=== PATIENT | female | born 1990 | race Caucasian/White ===

== ENCOUNTER → 2020-11-25 | Day surgery (SDC) | payer BC ==
[~2020-11-25] MED LIST: Flumazenil 0.1 MG/ML 5 ML MDV ONE; HYDROmorphone 1 MG/ML Syringe ONE; Ketamine 200 MG/20 ML MDV ONE; Metoclopramide 10 MG/2 ML SDV ONE; Midazolam 1 MG/ML 2 ML SDV ONE; Ondansetron 4 MG/2 ML SDV ONE
[2020-11-25] MEDS: Lactated Ringers 1,000 ML IV SCH (11:21)
--- NOTE | 2020-11-25 16:17 | OR ---
DATE OF OPERATION: 11/25/2020 PREOPERATIVE DIAGNOSIS: LARGE SYMPTOMATIC 10 CM LIPOMA, LEFT POSTERIOR THIGH. POSTOPERATIVE DIAGNOSIS: LARGE SYMPTOMATIC 8 CM LIPOMA, LEFT POSTERIOR THIGH. SURGEON: Jesus Paulino MD PROCEDURE: EXCISION OF 8 CM LIPOMA, LEFT POSTERIOR THIGH. ANESTHESIA: Local plus MAC. SPECIMEN: Lipoma. INDICATIONS: This 30-year-old female has a symptomatic left thigh lipoma by CT scan, this is consistent with a lipoma but not in a true balled up enucleated fashion. DESCRIPTION OF PROCEDURE: I had attempted to do this in the [facility] thinking this excision would be adequate under local anesthesia. However, after 2 syringes full of lidocaine with epinephrine, the patient still was markedly symptomatic. It is almost she had no reaction at all to the local anesthesia. This was too much in the way of crying and discomfort for the patient. I had Anesthesia available and decided to move her to the operating room to add monitored anesthesia care for the excision. In the operating room, the wound was re-prepped and draped in a sterile manner. After adequate relaxation and sedation, I was able to then core out the fatty area of lobulated lipoma. This was not a typical one that had a sac that was easy to enucleate. It mostly came out kind of in fragments of large lobulated fat areas. There was no surgical margin other than what I took out, but the entire cavity was about 8 cm in diameter instead of palpable 10. Hemostasis was controlled with cautery. The wound was closed using 2-0 Vicryl for the subcutaneous fat area and 4-0 Vicryl was used for the skin. BPB/IRVINGL /[id number]
== END ==
LOC: CC.SDS 10:58
PROVIDERS: ATTEND Surgery
DX: D17.24 Benign lipomatous neoplasm of skin and subcutaneous tissue of left leg (principal); Z98.890 Other specified postprocedural states; Z79.899 Other long term (current) drug therapy; Z88.8 Allergy status to other drugs, medicaments and biological substances
CPT/HCPCS: 00300; J1170; J2250; J2405; J2765; J3490; J7120

== ENCOUNTER 2023-09-03 10:31 | Emergency (ER) | payer OTHER ==
[2023-09-03] MEDS ORDERED: Naloxone 2 MG/2 ML Syringe IVPUSH PRN (10:46)
[2023-09-03] MEDS: HYDROmorphone 0.5 MG/0.5 ML Syringe IVPUSH ONE (11:03)
[2023-09-03 11:11] LABS: BASOPHILS ABSOLUTE AUTO 0.03 10^3/uL (0.00-0.50); BASOPHILS PERCENT AUTO 0.3 % (0-1); EOSINOPHILS ABSOLUTE AUTO 0.04 10^3/uL (0.00-1.50); EOSINOPHILS PERCENT AUTO 0.5 % (0-6); HEMATOCRIT 35.1 % (37.0-47.0); HEMOGLOBIN 11.6 g/dL (12.0-16.0); IMMATURE GRAN ABSOLUTE AUTO 0.01 10^3/uL (0.00-0.49); IMMATURE GRAN PERCENT AUTO 0.1 % (0.0-4.9); LYMPHOCYTES ABSOLUTE AUTO 2.01 10^3/uL (0.60-5.00); LYMPHOCYTES PERCENT AUTO 23.4 % (24-44); MEAN CORPUSCULAR HEMOGLOBIN 31.8 pg (27.0-32.0); MEAN CORPUSCULAR VOLUME 96.2 fL (83.0-97.0); MONOCYTES ABSOLUTE AUTO 0.42 10^3/uL (0.00-1.50); MONOCYTES PERCENT AUTO 4.9 % (0-10); NEUTROPHILS ABSOLUTE AUTO 6.09 x10^3/uL (1.80-8.00); NEUTROPHILS PERCENT AUTO 70.8 % (41-71); PLATELET COUNT,PLT 217 10^3/uL (150-400); RED BLOOD CELL COUNT 3.65 x10^6/uL (4.00-5.50); WHITE BLOOD CELL COUNT,WBC 8.6 10^3/uL (4.0-11.0)
[2023-09-03 11:34] LABS: ALANINE AMINOTRANSFERASE,ALT 25 U/L (12-78); ALBUMIN 3.5 g/dL (3.4-5.0); ALKALINE PHOSPHATASE 51 U/L (46-116); ASPARTATE AMNIOTRANSFERASE,AST 15 U/L (15-37); BILIRUBIN TOTAL 0.2 mg/dL (0.0-1.0); BLOOD UREA NITROGEN,BUN 23 mg/dL (7-18); CALCIUM 7.9 mg/dL (8.4-10.1); CARBON DIOXIDE,CO2 27 mmol/L (21-32); CHLORIDE,CL 107 mEq/L (98-106); CREATININE 0.8 mg/dL (0.6-1.0); GLUCOSE RANDOM 88 mg/dL (75-99); POTASSIUM,K 4.2 mEq/L (3.5-5.0); PROTEIN TOTAL,TP 6.8 g/dL (6.4-8.2); SODIUM,NA 142 mEq/L (136-145)
[2023-09-03 11:35] LABS: C-REACTIVE PROTEIN < 0.50 mg/dL (<=0.50); ESTIMATED GFR 98 mL/min (>=60)
[2023-09-03 11:45] LABS: APPEARANCE,URINE CLOUDY (CLEAR); BILIRUBIN,URINE NEGATIVE (NEGATIVE); COLOR,URINE ORANGE (YELLOW); GLUCOSE,URINE 100 mg/dL (NEGATIVE); KETONES,URINE NEGATIVE (NEGATIVE); LEUKOCYTE ESTERASE,URINE LARGE (NEGATIVE); NITRITE,URINE POSITIVE (NEGATIVE); OCCULT BLOOD,URINE SMALL (NEGATIVE); PROTEIN,URINE 100 mg/dL (NEGATIVE)
[2023-09-03 11:55] LABS: BACTERIA,URINE MANY /HPF (NOT SEEN); EPITHELIAL CELLS,URINE OCCASIONAL /HPF (NOT SEEN); RBC,URINE 0-5 /HPF (0-5); WBC,URINE 50-75 /HPF (0-5)
== END 2023-09-03 12:03 | disposition home or self-care (01) ==
LOC: CC.ED 10:31
DX: K59.00 Constipation, unspecified (principal); N39.0 Urinary tract infection, site not specified; Z88.6 Allergy status to analgesic agent; Z79.899 Other long term (current) drug therapy
CPT/HCPCS: 36415; 74019; 80053; 81001; 85025; 86140; 87086; 87088; 87186; 96374; 99284; 99284-25; J1170

== ENCOUNTER 2023-09-05 17:02 | Emergency (ER) | payer OTHER ==
[2023-09-05] MEDS: Bisacodyl 10 MG Supp RECTAL ONE (18:28)
== END 2023-09-05 21:50 | disposition home or self-care (01) ==
LOC: CC.ED 17:02
DX: K59.00 Constipation, unspecified (principal); Z79.899 Other long term (current) drug therapy
CPT/HCPCS: 74019; 99283; A9270-GY

== ENCOUNTER 2023-09-07 11:32 | Day surgery (SDC) | payer OTHER ==
[2023-09-07] MEDS: Lactated Ringers 1,000 ML IV SCH (12:06)
[2023-09-07] MEDS ORDERED: Ketamine 200 MG/20 ML MDV ONE (12:23)
[2023-09-07] MEDS ORDERED: Propofol 200 MG/20 ML SDV ONE (12:23)
[2023-09-07] MEDS ORDERED: Lidocaine 2% 20 ML MDV ONE (12:23)
== END 2023-09-07 13:45 | disposition home or self-care (01) ==
LOC: CC.SDS 11:32
PROVIDERS: ATTEND Family Medicine
DX: K21.00 Gastro-esophageal reflux disease with esophagitis, without bleeding (principal); K29.80 Duodenitis without bleeding; K59.00 Constipation, unspecified; R63.4 Abnormal weight loss; Z68.26 Body mass index [BMI] 26.0-26.9, adult; Z79.899 Other long term (current) drug therapy
CPT/HCPCS: 00731; 87081; J2704; J3490; J7120

== ENCOUNTER 2023-12-20 17:17 | Emergency (ER) | payer OTHER ==
[2023-12-20] MEDS: Orphenadrine 60 MG/2 ML Inj IM ONE (18:18)
[2023-12-20] MEDS: Take Home: Cyclobenzaprine 10 MG Tab, 4 Tab Pack PO ONE (18:22)
== END 2023-12-20 18:50 | disposition home or self-care (01) ==
LOC: CC.ED 17:17
DX: S70.01XA Contusion of right hip, initial encounter (principal); F17.210 Nicotine dependence, cigarettes, uncomplicated; Z79.899 Other long term (current) drug therapy; Z88.8 Allergy status to other drugs, medicaments and biological substances; W19.XXXA Unspecified fall, initial encounter
CPT/HCPCS: 96372; 99283; A9270-GY; J2360

== ENCOUNTER 2024-11-02 07:41 | Emergency (ER) | payer MEDICAID | END 2024-11-02 09:17 | disposition home or self-care (01) | LOC: CC.ED 07:41 | DX: S05.02XA Injury of conjunctiva and corneal abrasion without foreign body, left eye, initial encounter (principal); F17.210 Nicotine dependence, cigarettes, uncomplicated; Z88.6 Allergy status to analgesic agent; Z79.899 Other long term (current) drug therapy; X58.XXXA Exposure to other specified factors, initial encounter; Y93.89 Activity, other specified | CPT/HCPCS: 99283 ==